=== PATIENT | female | born 1990 | race American Indian/Alaskan Native ===

== ENCOUNTER 2016-10-04 21:02 | Emergency (ER) | payer OTHER ==
[2016-10-04 21:23] VITALS: BP 128/69
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
[2016-10-04] MEDS ORDERED: MOTRIN PO ONE (22:23)
--- NOTE | 2016-10-04 22:58 | XRay Report ---
FINAL REPORT EXAM: XR ANKLE 3+V LT HISTORY: left ankel pain TECHNIQUE: 3 views of left ankle. PRIORS: None. FINDINGS: No apparent fracture or dislocation. Ankle mortise maintained. Anterolateral soft tissue edema. IMPRESSION: 1. No acute osseous abnormality. 2. Soft tissue edema.
== END 2016-10-04 22:35 | disposition home or self-care (01) ==
LOC: ED 21:02
DX: S30.814A Abrasion of vagina and vulva, initial encounter (principal); S93.402A Sprain of unspecified ligament of left ankle, initial encounter; V89.2XXA Person injured in unspecified motor-vehicle accident, traffic, initial encounter; Y93.89 Activity, other specified; Y92.89 Other specified places as the place of occurrence of the external cause; Y99.8 Other external cause status
CPT/HCPCS: 99284

== ENCOUNTER 2021-07-27 11:25 | Emergency (ER) | payer SELFPAY ==
[2021-07-27 12:15] VITALS: BP 113/68
--- NOTE | 2021-07-27 12:15 | Emergency Department Report ---
ED Abdominal Pain HPI - General Chief Complaint: Abdominal Pain Stated Complaint: XRAY/ULTRASOUND PUI?: No Time Seen by Provider: 07/27/21 12:15 Source: patient Mode of arrival: Ambulatory Limitations: No Limitations - History of Present Illness Initial Comments: Patient is a 31-year-old female that comes to the emergency room with acute on chronic abdominal pain. She comes in requesting an x-ray and a CAT scan. She wants an x-ray to look at her internal organs. She has not seen any primary care provider for this. She states she had an ultrasound at another ER but it did not show her what she wanted to see so she is here. She denies any fever or chills. She denies nausea vomiting diarrhea. She denies any constipation. Last menstrual cycle 2 weeks ago. Patient not having any vaginal discharge or bleeding. She is ambulatory, nontoxic [id number] on arrival. MD Complaint: abdominal pain -: Gradual, month(s) Location: diffuse Severity scale (0 -10): 0 Consistency: intermittent Improves With: nothing Worsens With: nothing Associated Symptoms: denies other symptoms - Related Data LMP (females 10-50): other (2 weeks) Previous Rx's Medication Instructions Recorded Last Taken Type Cyclobenzaprine [Flexeril] 10 mg PO TID PRN #10 tablet 10/04/16 Unknown Rx Fluconazole (Nf) [Diflucan TAB] 150 mg PO ONCE #1 tablet 10/04/16 Unknown Rx Ibuprofen [Motrin] 800 mg PO Q8HR PRN #25 tablet 10/04/16 Unknown Rx cephALEXin [Keflex] 500 mg PO Q12HR #10 cap 10/04/16 Unknown Rx Allergies Allergy/AdvReac Type Severity Reaction Status Date / Time No Known Allergies Allergy Unverified 10/04/16 21:20 ED Review of Systems ROS: Stated complaint: XRAY/ULTRASOUND Other details as noted in HPI Comment: All other systems reviewed and negative ED Past Medical Hx - Past Medical History Previous Medical History?: No - Surgical History Past Surgical History?: No Additional Surgical History: - Family History Family history: no significant - Social History Smoking Status: Never Smoker Substance Use Type: None - Medications Home Medications: Home Medications Medication Instructions Recorded Confirmed Last Taken Type Cyclobenzaprine [Flexeril] 10 mg PO TID PRN #10 tablet 10/04/16 Unknown Rx Fluconazole (Nf) [Diflucan TAB] 150 mg PO ONCE #1 tablet 10/04/16 Unknown Rx Ibuprofen [Motrin] 800 mg PO Q8HR PRN #25 tablet 10/04/16 Unknown Rx cephALEXin [Keflex] 500 mg PO Q12HR #10 cap 10/04/16 Unknown Rx ED Physical Exam - General Limitations: No Limitations General appearance: alert, in no apparent distress - Head Head exam: Present: atraumatic, normocephalic - Eye Eye exam: Present: normal appearance - ENT ENT exam: Present: mucous membranes moist - Neck Neck exam: Present: normal inspection - Respiratory Respiratory exam: Present: normal lung sounds bilaterally. Absent: respiratory distress - Cardiovascular Cardiovascular Exam: Present: regular rate, normal rhythm. Absent: systolic murmur, diastolic murmur, rubs, gallop - GI/Abdominal GI/Abdominal exam: Present: soft, normal bowel sounds - Extremities Exam Extremities exam: Present: normal inspection - Back Exam Back exam: Present: normal inspection - Neurological Exam Neurological exam: Present: alert, oriented X3 - Psychiatric Psychiatric exam: Present: normal affect, normal mood - Skin Skin exam: Present: warm, dry, intact, normal color. Absent: rash ED Course Vital Signs 07/27/21 12:10 Temperature 98.6 F Pulse Rate 81 Respiratory 16 Rate Blood Pressure 113/68 O2 Sat by Pulse 97 Oximetry ED Medical Decision Making - Medical Decision Making Vital Signs 07/27/21 12:10 Temperature 98.6 F Pulse Rate 81 Respiratory 16 Rate Blood Pressure 113/68 O2 Sat by Pulse 97 Oximetry Patient has no symptoms at the current time. Here requesting routine imaging. Patient has been educated on appropriate use of medical resources including PCP and GI. Abdomen is soft and nontender. Vital signs are normal. Patient discharged home with discharge plan of care including diet, activity, medications and follow-up. She verbalizes understanding of plan of care - Differential Diagnosis Acute on chronic abdominal pain Critical care attestation.: If time is entered above; I have spent that time in minutes in the direct care of this critically ill patient, excluding procedure time. ED Disposition Clinical Impression: Abdominal pain Qualifiers: Abdominal location: unspecified location Qualified Code(s): R10.9 - Unspecified abdominal pain Disposition: HOME / SELF CARE / HOMELESS Is pt being admited?: No Does the pt Need Aspirin: No Condition: Stable Instructions: Abdominal Pain (ED) Additional Instructions: follow up with MD below as we discussed Referrals: TK LOUIS MD [Primary Care Provider] - 3-5 Days ENDER VERONICA MD [Staff Physician] - 3-5 Days Time of Disposition: 12:16
--- NOTE | 2021-07-28 09:05 | Electrocardiograph Report ---
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
== END 2021-07-27 12:17 | disposition home or self-care (01) ==
LOC: ED 11:25
DX: R10.84 Generalized abdominal pain (principal); Z98.890 Other specified postprocedural states; Z79.899 Other long term (current) drug therapy
CPT/HCPCS: 93005; 99282

== ENCOUNTER 2021-07-29 07:50 | Emergency (ER) | payer SELFPAY ==
[2021-07-29 08:13] VITALS: BP 119/81
--- NOTE | 2021-07-29 10:17 | Electrocardiograph Report ---
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
== END 2021-07-29 09:30 | disposition left against medical advice (07) ==
LOC: ED 07:50
DX: R07.9 Chest pain, unspecified (principal); Z72.820 Sleep deprivation; Z53.21 Procedure and treatment not carried out due to patient leaving prior to being seen by health care provider
CPT/HCPCS: 93005